=== PATIENT | male | born 1975 | race African-American/Black ===

== ENCOUNTER 2021-12-07 01:22 | Emergency (ER) | payer SELFPAY ==
[~2021-12-07] VITALS: Ht 182.9 cm; Wt 91.0 kg
[2021-12-07 03:45] VITALS: BP 132/84
== END 2021-12-07 04:01 ==
LOC: ER 01:22
DX: S60.419A Abrasion of unspecified finger, initial encounter (principal); S00.83XA Contusion of other part of head, initial encounter; W01.0XXA Fall on same level from slipping, tripping and stumbling without subsequent striking against object, initial encounter; Y93.89 Activity, other specified; Y92.9 Unspecified place or not applicable
CPT/HCPCS: 99283